=== PATIENT | female | born 1975 | race Caucasian/White ===

== ENCOUNTER 2017-02-22 05:41 | Day surgery (SDC) | payer OTHER ==
[~2017-02-22] VITALS: Ht 152.4 cm; Wt 61.0 kg
[2017-02-22 06:58] VITALS: Ht 152.4 cm; Wt 61.0 kg
[2017-02-22] MEDS ORDERED: GABA100C14 PO (07:17)
[2017-02-22] MEDS ORDERED: HYDR-902 PO (07:17)
[2017-02-22] MEDS ORDERED: bp med (07:17)
[2017-02-22 07:41] VITALS: BP 129/60; PULSE 78; RESP 16
--- NOTE | 2017-02-22 08:28 | OPPN ---
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
[2017-02-22] MEDS ORDERED: FENTAnyl 50 MCG/ML VIAL ONE (08:29)
[2017-02-22] MEDS ORDERED: MIDAZOLAM 1 MG/ML 2 ML INJ ONE (08:29)
[2017-02-22 08:42] VITALS: BP 123/71; RESP 18
--- NOTE | 2017-02-22 09:32 | GILP ---
DATE OF PROCEDURE: NAME OF PROCEDURES: Esophagogastroduodenoscopy and biopsy. SURGEON: Wade Hernandez MD PREOPERATIVE DIAGNOSIS: Abdominal pain. POSTOPERATIVE DIAGNOSES 1. Gastritis with erosions. 2. Gastric mucosal biopsies were taken for histopathology. INDICATION FOR THE PROCEDURE: Ms. Frida Alegre is a 41-year-old female patient who was complainin g of upper abdominal pain, not responding to therapy. The patient was scheduled for endoscopic exam ination for further evaluation. The procedure and possible complications were well explained to the patient. The patient understood and consented to the procedure. DESCRIPTION OF PROCEDURE: Under the influence of fentanyl and Versed, the gastroscope was carefully introduced into the esophagus and under direct vision, it was advanced to the stomach and through t he pylorus into the duodenal bulb and descending duodenum. FINDINGS: ESOPHAGUS: The mucosa was normal. STOMACH: The patient had gastritis with erosions. Gastric mucosal biopsies were taken for H. pylor i test. DUODENUM: Normal. The patient tolerated the procedure very well and there was no complication from the procedure. At the end of the procedures, she was awake with stable vital signs and she was discharged home to the care of her family. IMPRESSION: 1. Gastritis with erosions. 2. Gastric mucosal biopsies were taken for Helicobacter pylori test. PLAN: 1. Omeprazole 40 mg p.o. q.a.m. 2. Await H. pylori test report. Dictated By: WADE MORENO/AMOR Conf#: [id number] DID#: [id number]
--- NOTE | 2017-02-26 07:58 | CONS ---
DATE OF ADMISSION: DATE OF CONSULTATION: 01/30/2017 REASON FOR CONSULTATION: I thank you very much for this kind referral. Ms. Isauro Alegre is a 41-year-old female patient who has been referred to me for further evaluation of upper abdominal pain not responding to therapy with Pepcid. There is no definite past history of peptic ulcer disease. She is not taking any nonsteroidal anti-inflammatory agents. Her appetite has been somewhat poor. No history of gallstones or liver disease. No past history of inflammatory bowel disease or colon neoplasm. She is hypertensive. She has diabetes. The patient has got chronic renal failure and she is on dialysis. SOCIAL HISTORY: Nonsmoker. No alcohol abuse. FAMILY HISTORY: No family history of gastrointestinal tract neoplasm. ALLERGIES: NO DRUG ALLERGIES. MEDICATION: She takes medicine for high blood pressure and diabetes. The patient does not remember the names. PHYSICAL EXAMINATION: VITAL SIGNS: She is 4 feet 10 inches tall, weighs 135 pounds. GENERAL: She is wheelchair-bound. HEART: Normal heart sounds. LUNGS: Clear. ABDOMEN: Distended. Patient has got possible ascites. No masses. Normal bowel sounds. NEUROLOGIC: Patient is generally weak, and she is not able to walk. She is wheelchair-bound. IMPRESSION: 1. Upper abdominal pain not responding to therapy with Pepcid. 2. Hypertension. 3. Diabetes mellitus. 4. Chronic renal failure and the patient is on dialysis. 5. Abdominal distention, rule out ascites. PLAN: 1. Abdominal ultrasound to rule out ascites. 2. Endoscopic examination for further evaluation of abdominal pain. The procedure and possible complications were well explained to the patient and the family. They understand and consent to the procedure. I thank you once again. With warmest personal regards, Patient Name: THONG ALEGRE Dictated By: MD TIFFANIE Veras/gomez/abiola /Document#: [id number]
== END 2017-02-22 10:53 | disposition home or self-care (01) ==
LOC: GIL 05:41
PROVIDERS: ATTEND Internal Medicine Gastroenterology
DX: K29.70 Gastritis, unspecified, without bleeding (principal)
CPT/HCPCS: 43239; 82962; 88305; 88312; J2250; J3010; Z7610